=== PATIENT | male | born 1965 | race African-American/Black ===

== ENCOUNTER 2018-01-13 11:30 | Inpatient (IN) | payer OTHER ==
[2018-01-13 13:08] VITALS: BMI 38.2
--- NOTE | 2018-01-13 19:23 | HP ---
CIWA Score - CIWA Score Nausea/Vomitin Muscle Tremors: 3 Anxiety: 4-Mod. Anxious/Guarded Agitation: 4-Moderately Restless Paroxysmal Sweats: 2 Orientation: 0-Oriented Tacttile Disturbances: 0-None Auditory Disturbances: 0-None Visual Disturbances: 0-None Headache: 0-None Present CIWA-Ar Total Score: 16 Admission ROS BHS - HPI Chief Complaint: "I am here to get clean". requesting detox from alcohol and crack cocaine Allergies/Adverse Reactions: Allergies Allergy/AdvReac Type Severity Reaction Status Date / Time No Known Allergies Allergy Verified 01/13/18 16:50 History of Present Illness: 52 year old male with a very long hx of alcohol abuse presents for detox from alcohol. pt states he came voluntarily. Reports being clean for 90 days, states he relapsed using crack and alcohol till this morning. Pt has been here in the past. Hx- HTN (Diovan), Acid reflux (prevacid), Depression (trazadone). Reports feeling depressed but Denies SI. Exam Limitations: No Limitations - Ebola screening Have you traveled outside of the country in the last 21 days: No Have you had contact with anyone from an Ebola affected area: No Have you been sick,other than usual withdrawal symptoms: No Do you have a fever: No - Review of Systems Constitutional: Loss of Appetite, Changes in sleep EENT: reports: No Symptoms Reported Respiratory: reports: No Symptoms reported Cardiac: reports: No Symptoms Reported GI: reports: Diarrhea, Nausea : reports: No Symptoms Reported Musculoskeletal: reports: No Symptoms Reported Integumentary: reports: No Symptoms Reported Neuro: reports: No Symptoms reported Endocrine: reports: No Symptoms Reported Hematology: reports: No Symptoms Reported Psychiatric: reports: Orientated x3, Agitated, Anxious, Depressed (because 'i just messed up with drinking again") Other Systems: Reviewed and Negative Patient History - Patient Medical History Hx Anemia: No Hx Asthma: No Hx Chronic Obstructive Pulmonary Disease (COPD): No Hx Cancer: No Hx Cardiac Disorders: No Hx Congestive Heart Failure: No Hx Hypertension: Yes Hx Pacemaker: Yes (On diovan, reports being compliant) HX Cerebrovascular Accident: No Hx Seizures: No Hx Dementia: No Hx Diabetes: No Hx Gastrointestinal Disorders: No Hx Liver Disease: No Hx Genitourinary Disorders: No Hx Sexually Transmitted Disorders: No Hx Renal Disease (ESRD): No Hx Thyroid Disease: No Hx Human Immunodeficiency Virus (HIV): No (Negative 8 months ago) Hx Hepatitis C: No Hx Depression: Yes (On Trazadone) Hx Suicide Attempt: No Hx Bipolar Disorder: Yes (Bipolar I) Hx Schizophrenia: No - Patient Surgical History Past Surgical History: Yes Hx Orthopedic Surgery: Yes (R knee replacement 2009) Anesthesia Reaction: No - PPD History Previous Implant?: Yes Documented Results: Negative w/o proof Implanted On Prior [facility] Admission?: No PPD to be Administered?: Yes - Reproductive History Patient is a Female of Child Bearing Age (11 -55 yrs old): No - Smoking Cessation Smoking history: Current some day smoker Have you smoked in the past 12 months: Yes Aproximately how many cigarettes per day: 13 Hx Chewing Tobacco Use: No Initiated information on smoking cessation: Yes 'Breaking Loose' booklet given: 01/13/18 - Substance & Tx. History Hx Alcohol Use: Yes (Beer and liquor) Hx Substance Use: Yes Substance Use Type: Cocaine - Substances Abused Alcohol Route: Oral Frequency: Daily Amount used: -06/17OZ BEER, 1/4 pint of Betty Age of first use: 13 Date of Last Use: 01/13/18 Cocaine Route: Smoking Frequency: 1-3 times last 30 days Amount used: $700 Age of first use: 25 Date of Last Use: 01/12/18 Family Disease History - Family Disease History Family History: Unable to Obtain Admission Physical Exam BHS - Vital Signs Vital Signs: Vital Signs - 24 hr 01/13/18 13:06 Temperature 96.2 F L Pulse Rate 79 Respiratory 20 Rate Blood Pressure 122/73 - Physical General Appearance: Yes: Mild Distress, Irritable, Anxious HEENTM: Yes: Nasal Congestion Respiratory: Yes: Lungs Clear, No Respiratory Distress Neck: Yes: No masses,lesions,Nodules, Trachea in good position Breast: Yes: Breast Exam Deferred Cardiology: Yes: Regular Rhythm Abdominal: Yes: Non Tender, Distended Genitourinary: Yes: Within Normal Limits Back: Yes: Normal Inspection Musculoskeletal: Yes: full range of Motion, Gait Steady Extremities: Yes: Normal Capillary Refill, Normal Range of Motion Neurological: Yes: Fully Oriented, Alert, Motor Strength 5/5 Integumentary: Yes: Dry (Generalized dry scaly skin) Lymphatic: Yes: Within Normal Limits - Diagnostic (1) Alcohol dependence, uncomplicated Current Visit: Yes Status: Acute (2) Cocaine dependence Current Visit: Yes Status: Acute (3) Nicotine dependence Current Visit: Yes Status: Chronic (4) Dry skin Current Visit: Yes Status: Acute (5) HTN (hypertension) Current Visit: Yes Status: Chronic (6) Acid reflux Current Visit: Yes Status: Chronic (7) Depression Current Visit: Yes Status: Suspected Cleared for Admission BHS - Detox or Rehab Detox Regimen/Protocol: Librium BHS Breath Alcohol Content Breath Alcohol Content: 0.089 Urine Drug Screen - Results Drug Screen Negative: No Urine Drug Screen Results: DEMIAN-Cocaine
[2018-01-13] MEDS ORDERED: ACETAMINOPHEN 325 MG TABLET (FP) PO PRN (19:44)
[2018-01-13] MEDS ORDERED: chlordiazePOXIDE HCL 25 MG CAPSULE PO PRN (19:44)
[2018-01-13] MEDS ORDERED: MAG HYDROX/AL HYDROX/SIMETH 30 ML UNIT-DOSE CUP PO PRN (19:44)
[2018-01-13] MEDS ORDERED: IBUPROFEN 400 MG TABLET (FP) PO PRN (19:44)
[2018-01-13] MEDS ORDERED: NICOTINE POLACRILEX 2 MG GUM BUC PRN (19:44)
[2018-01-13] MEDS ORDERED: LOPERAMIDE HCL 2 MG CAPSULE PO PRN (19:44)
[2018-01-13] MEDS ORDERED: hydrOXYzine PAMOATE 50 MG CAPSULE (FP) PO PRN (19:44)
[2018-01-13] MEDS ORDERED: MENTHOL/PHENOL 1 EACH UD MM PRN (19:44)
[2018-01-13] MEDS ORDERED: P-EPHED 60MG/TRIPROLIDI 2.5MG TABLET PO PRN (19:44)
[2018-01-13] MEDS ORDERED: guaiFENesin/D-METHORPHAN HB 10 ML UNIT-DOSE CUPS PO PRN (19:44)
[2018-01-13] MEDS ORDERED: MAGNESIUM HYDROX 2400MG/30ML ORAL SUSPENSION 30 ML CUP PO PRN (19:44)
[2018-01-13] MEDS ORDERED: MAGNESIUM CITRATE 300 ML BOTTLE PO PRN (19:44)
[2018-01-13] MEDS: NICOTINE 21 MG/24 HOURS TOPICAL PATCH TD SCH (21:28)
[2018-01-13] MEDS: PANTOPRAZOLE 20 MG TABLET (FP) PO SCH (21:29)
[2018-01-13] MEDS: THIAMINE HCL 100 MG TABLET (FP) PO SCH (21:29)
[2018-01-13] MEDS ORDERED: MELATONIN 5 MG TABLETS PO PRN (22:00)
[2018-01-13] MEDS: chlordiazePOXIDE HCL 25 MG CAPSULE PO SCH (22:32)
[2018-01-13 22:56] LABS: URINE APPEARANCE CLEAR; URINE BILIRUBIN NEGATIVE (<2.0 mg/dL); URINE COLOR STRAW; URINE GLUCOSE (UA) NEGATIVE (NEGATIVE); URINE KETONE NEGATIVE (NEGATIVE); URINE LEUK ESTERASE NEGATIVE (NEGATIVE); URINE NITRITE NEGATIVE (NEGATIVE); URINE PROTEIN NEGATIVE (NEGATIVE); URINE UROBILINOGEN NEGATIVE mg/dL (0.2-1.0)
[2018-01-14] MEDS: chlordiazePOXIDE HCL 25 MG CAPSULE PO SCH ×4 (05:53→22:10)
--- NOTE | 2018-01-14 10:23 | PN ---
S CIWA - CIWA Score Nausea/Vomitin Muscle Tremors: 3 Anxiety: 3 Agitation: 2 Paroxysmal Sweats: 3 Orientation: 0-Oriented Tacttile Disturbances: 0-None Auditory Disturbances: 0-None Visual Disturbances: 0-None Headache: 0-None Present CIWA-Ar Total Score: 14 BHS Progress Note (SOAP) Subjective: Sweats Shakes Sleep disturbance Objective: 01/14/18 10:29 A & O x 3 In bed, sleepy but arousable Vital Signs Temperature 97.1 F L 01/14/18 09:09 Pulse Rate 74 01/14/18 09:09 Respiratory Rate 18 01/14/18 09:09 Blood Pressure 123/85 01/14/18 09:09 O2 Sat by Pulse Oximetry (%) Laboratory Last Values Urine Color Straw 01/13/18 20:00 Urine Appearance Clear 01/13/18 20:00 Urine pH 7.0 (5.0-8.0) 01/13/18 20:00 Ur Specific [place] 1.004 (1.001-1.035) 01/13/18 20:00 Urine Protein Negative (NEGATIVE) 01/13/18 20:00 Urine Glucose (UA) Negative (NEGATIVE) 01/13/18 20:00 Urine Ketones Negative (NEGATIVE) 01/13/18 20:00 Urine Blood Negative (NEGATIVE) 01/13/18 20:00 Urine Nitrite Negative (NEGATIVE) 01/13/18 20:00 Urine Bilirubin Negative (<2.0 mg/dL) 01/13/18 20:00 Urine Urobilinogen Negative mg/dL (0.2-1.0) 01/13/18 20:00 Ur Leukocyte Esterase Negative (NEGATIVE) 01/13/18 20:00 pending labs Assessment: 01/14/18 10:30 withdrawal sx Plan: continue detox Increase hydration
[2018-01-14] MEDS: PRENATAL VITAMINS W/ FOLIC ACID TABLET (FP) PO SCH (10:25)
[2018-01-14] MEDS: NICOTINE 21 MG/24 HOURS TOPICAL PATCH TD SCH (10:25)
[2018-01-14] MEDS: PANTOPRAZOLE 20 MG TABLET (FP) PO SCH (10:25)
[2018-01-14 10:44] LABS: HEMATOCRIT 40.5 % (35.4-49); HEMOGLOBIN 12.9 GM/dL (11.7-16.9); MCH 23.7 pg (25.7-33.7); MCHC 31.9 g/dl (32.0-35.9); MEAN CELL VOLUME 74.2 fl (80-96); MEAN PLT VOLUME 9.1 fl (7.5-11.1); PLATELET COUNT 215 K/MM3 (134-434); RBC 5.46 M/mm3 (4.00-5.60); WHITE BLOOD COUNT 11.9 K/mm3 (4.0-10.0)
[2018-01-14 10:49] LABS: ALBUMIN 3.3 g/dl (3.4-5.0); ANION GAP 8 (8-16); BLOOD UREA NITROGEN 17 mg/dL (7-18); CALCIUM 8.3 mg/dL (8.5-10.1); CHLORIDE 101 mmol/L (98-107); CO2 30 mmol/L (21-32); GLUCOSE,RANDOM 138 mg/dL (74-106); POTASSIUM 3.4 mmol/L (3.5-5.1); SGOT/AST 35 U/L (15-37); SODIUM 139 mmol/L (136-145)
[2018-01-14 10:51] LABS: ALK PHOS 76 U/L (45-117); BILIRUBIN,TOTAL 0.4 mg/dL (0.2-1.0); CREATININE 1.2 mg/dL (0.7-1.3); SGPT/ALT 40 U/L (12-78); TOT PROT 6.5 g/dl (6.4-8.2)
--- NOTE | 2018-01-14 11:09 | EKG ---
Test Reason : Blood Pressure : / mmHG Vent. Rate : 075 BPM Atrial Rate : 075 BPM P-R Int : 168 ms QRS Dur : 080 ms QT Int : 424 ms P-R-T Axes : 040 052 047 degrees QTc Int : 473 ms NORMAL SINUS RHYTHM NORMAL ECG NO PREVIOUS ECGS AVAILABLE Confirmed by DRU RIVERA MD ([id number]) on 01/14/2018 11:09:26 AM Referred By: Clyde Arreola Confirmed By:DRU RIVERA MD
[2018-01-14] MEDS: VALSARTAN 80 MG TABLET (UD) PO SCH (11:30)
--- NOTE | 2018-01-14 12:48 | CONSULT ---
[facility] Psychiatric Consult - Data Date of interview: 01/14/18 Admission source: [facility] Identifying data: First admission to [facility] for this 52 y/o AA male seeking detox treatment on for alcohol and cocaine (crack) dependence.Patient is single,a father of one,domiciled,unemployed and supported on [facility] benefits. Substance Abuse History: Confirmed by patient in this interview.Details in current [facility] report : Smoking history: Current some day smoker. Have you smoked in the past 12 months: Yes. Aproximately how many cigarettes per day: 13. Hx Chewing Tobacco Use: No. Initiated information on smoking cessation: Yes. ' Breaking Loose' booklet given: 01/13/18. - Substance & Tx. History. Hx Alcohol Use: Yes (Beer and liquor). Hx Substance Use: Yes. Substance Use Type : Cocaine. - Substances Abused. Alcohol. Route: Oral. Frequency: Daily. Amount used: 8-06/17OZ BEER, 1/4 pint of Betty. Age of first use: 13. Date of Last Use: 01/13/18. Cocaine. Route: Smoking. Frequency: 1-3 times last 30 days. Amount used: $700. Age of first use: 25. Date of Last Use: 01/12/18 Medical History: Hypertension,GERD,cardiopathy (pacemaker in place) and a distant history of orthosurgery (right knee replacement). Psychiatric History: Patient admits to a history of three psychiatric hopitalizations ([facility]).Reportedly diagnosed with Bipolar Disorder.Mr Ramirez states that he gets his outpatient psychiatric services at the [facility] in [place], [place].Prescribed trazodone 150 mg/hs." They prescribe me other things but I don't take them." Review of pharmacy claims yields the evidence of refills for fluoxetine and aripriprazole (2017) + lamotrigine 100 mg/day on 12/25/17 at [facility] # [id number].No psychiatric rehospitalizations for more than 10 years as per self-report.Patient denies history of suicide attempts. Physical/Sexual Abuse/Trauma History: Patient denies. Additional Comment: Urine Drug Screen Results: DEMIAN-Cocaine.Noted. Mental Status Exam - Mental Status Exam Alert and Oriented to: Time, Place, Person Cognitive Function: Good Patient Appearance: Disheveled Mood: Withdrawn Affect: Appropriate, Normal Range Patient Behavior: Fatigued, Appropriate, Cooperative Speech Pattern: Clear, Appropriate Voice Loudness: Normal Thought Process: Goal Oriented Thought Disorder: Not Present Hallucinations: Denies Suicidal Ideation: Denies Homicidal Ideation: Denies Insight/Judgement: Poor Sleep: Poorly, Difficulty falling asleep Appetite: Good Muscle strength/Tone: Normal Gait/Station: Normal Psychiatric Findings - Problem List ([place] 1, 2,3) (1) Alcohol dependence, uncomplicated Current Visit: Yes Status: Acute (2) Cocaine dependence Current Visit: Yes Status: Acute (3) Nicotine dependence Current Visit: Yes Status: Acute (4) Substance induced mood disorder Current Visit: Yes Status: Acute (5) Bipolar disorder Current Visit: Yes Status: Chronic Comment: As per self-report.Prescribed lamotrigine.Non-adherence to medication. (6) Insomnia Current Visit: Yes Status: Acute - Initial Treatment Plan Initial Treatment Plan: Psychoeducation.Sleep hygiene.Detoxification in progress.Patient is advised to take his medications as prescribed by Dr Raiza Navas, his [facility] care psychiatrist.Mr Ramirez declares that he will take only trazodone and " nothing else." Made aware of risks taken by disregarding his doctor's orders.Informed of potential for priapism.Patient reports trazodone as well tolerated and effective.Trazodone 100 mg po hs.Ordered.Patient gildardoy consented to this careplan.Observation.
[2018-01-14] MEDS: THIAMINE HCL 100 MG TABLET (FP) PO SCH (22:09)
[2018-01-14] MEDS: traZODone HCL 100 MG TABLET (FP) PO SCH (22:09)
[2018-01-15] MEDS: chlordiazePOXIDE HCL 25 MG CAPSULE PO SCH ×3 (06:07→18:45)
[2018-01-15] MEDS: NICOTINE 21 MG/24 HOURS TOPICAL PATCH TD SCH (10:13)
[2018-01-15] MEDS: VALSARTAN 80 MG TABLET (UD) PO SCH (10:13)
[2018-01-15] MEDS: PANTOPRAZOLE 20 MG TABLET (FP) PO SCH (10:13)
[2018-01-15] MEDS: PRENATAL VITAMINS W/ FOLIC ACID TABLET (FP) PO SCH (10:13)
[2018-01-15] MEDS ORDERED: POTASSIUM CHLORIDE TABS 20 MEQ TABLET.ER (FP) PO ONE (11:40)
--- NOTE | 2018-01-15 11:40 | PN ---
[facility] CIWA - CIWA Score Nausea/Vomitin-No Nausea/No Vomiting Muscle Tremors: None Anxiety: 3 Agitation: 3 Paroxysmal Sweats: 3 Orientation: 0-Oriented Tacttile Disturbances: 3-Moderate Itch/Numb/Burn Auditory Disturbances: 0-None Visual Disturbances: 2-Mild Sensitivity Headache: 0-None Present CIWA-Ar Total Score: 14 S Progress Note (SOAP) Subjective: Fatigue, Sweating, Anxious, Body Aches. Objective: PATIENT A & O X 3. NO ACUTE DISTRESS. 01/15/18 11:38 Vital Signs Temperature 98.4 F 01/15/18 09:03 Pulse Rate 100 H 01/15/18 09:03 Respiratory Rate 16 01/15/18 09:03 Blood Pressure 140/87 01/15/18 09:03 O2 Sat by Pulse Oximetry (%) Laboratory Tests 01/13/18 01/14/18 01/14/18 20:00 07:00 07:00 WBC 11.9 H RBC 5.46 Hgb 12.9 Hct 40.5 MCV 74.2 L MCH 23.7 L MCHC 31.9 L RDW 16.0 H Plt Count 215 MPV 9.1 Sodium 139 Potassium 3.4 L Chloride 101 Carbon Dioxide 30 Anion Gap 8 BUN 17 Creatinine 1.2 Creat Clearance w eGFR > 60 Random Glucose 138 H Calcium 8.3 L Total Bilirubin 0.4 AST 35 ALT 40 Alkaline Phosphatase 76 Total Protein 6.5 Albumin 3.3 L Urine Color Straw Urine Appearance Clear Urine pH 7.0 Ur Specific [place] 1.004 Urine Protein Negative Urine Glucose (UA) Negative Urine Ketones Negative Urine Blood Negative Urine Nitrite Negative Urine Bilirubin Negative Urine Urobilinogen Negative Ur Leukocyte Esterase Negative RPR Titer 01/14/18 07:00 WBC RBC Hgb Hct MCV MCH MCHC RDW Plt Count MPV Sodium Potassium Chloride Carbon Dioxide Anion Gap BUN Creatinine Creat Clearance w eGFR Random Glucose Calcium Total Bilirubin AST ALT Alkaline Phosphatase Total Protein Albumin Urine Color Urine Appearance Urine pH Ur Specific [place] Urine Protein Urine Glucose (UA) Urine Ketones Urine Blood Urine Nitrite Urine Bilirubin Urine Urobilinogen Ur Leukocyte Esterase RPR Titer Nonreactive LABS NOTED. Assessment: 01/15/18 11:38 WITHDRAWAL SYMPTOMS. HYPOKALEMIA. 01/15/18 11:41 Plan: WITHDRAWAL SYMPTOMS. K-DUR, 20 MEQ PO BID. BGM ACBK FOR ELEVATED ADMISSION RANDOM GLUCOSE LEVEL. INCREASE DAILY PO FLUID INTAKE.
[2018-01-15] MEDS: POTASSIUM CHLORIDE TABS 20 MEQ TABLET.ER (FP) PO SCH (18:45)
[2018-01-15] MEDS: THIAMINE HCL 100 MG TABLET (FP) PO SCH (23:26)
[2018-01-15] MEDS: chlordiazePOXIDE 5 MG CAPSULE PO SCH (23:26)
[2018-01-15] MEDS: traZODone HCL 100 MG TABLET (FP) PO SCH (23:26)
[2018-01-16] MEDS: chlordiazePOXIDE 5 MG CAPSULE PO SCH ×3 (05:29→17:39)
[2018-01-16] MEDS: NICOTINE 21 MG/24 HOURS TOPICAL PATCH TD SCH (10:19)
[2018-01-16] MEDS: PRENATAL VITAMINS W/ FOLIC ACID TABLET (FP) PO SCH (10:19)
[2018-01-16] MEDS: PANTOPRAZOLE 20 MG TABLET (FP) PO SCH (10:19)
[2018-01-16] MEDS: VALSARTAN 80 MG TABLET (UD) PO SCH (10:19)
[2018-01-16] MEDS: POTASSIUM CHLORIDE TABS 20 MEQ TABLET.ER (FP) PO SCH ×2 (10:20→17:39)
--- NOTE | 2018-01-16 12:41 | PN ---
BHS Progress Note (SOAP) Subjective: ANXIETY,SWEATS,BOY ACHES,FATIGUE. Objective: 01/16/18 12:40 Vital Signs Temperature 97.4 F L 01/16/18 09:46 Pulse Rate 89 01/16/18 09:46 Respiratory Rate 18 01/16/18 09:46 Blood Pressure 145/84 01/16/18 09:46 O2 Sat by Pulse Oximetry (%) Laboratory Last Values WBC 11.9 K/mm3 (4.0-10.0) H 01/14/18 07:00 RBC 5.46 M/mm3 (4.00-5.60) 01/14/18 07:00 Hgb 12.9 GM/dL (11.7-16.9) 01/14/18 07:00 Hct 40.5 % (35.4-49) 01/14/18 07:00 MCV 74.2 fl (80-96) L 01/14/18 07:00 MCH 23.7 pg (25.7-33.7) L 01/14/18 07:00 MCHC 31.9 g/dl (32.0-35.9) L 01/14/18 07:00 RDW 16.0 % (11.9-15.9) H 01/14/18 07:00 Plt Count 215 K/MM3 (134-434) 01/14/18 07:00 MPV 9.1 fl (7.5-11.1) 01/14/18 07:00 Sodium 139 mmol/L (136-145) 01/14/18 07:00 Potassium 3.4 mmol/L (3.5-5.1) L 01/14/18 07:00 Chloride 101 mmol/L (98-107) 01/14/18 07:00 Carbon Dioxide 30 mmol/L (21-32) 01/14/18 07:00 Anion Gap 8 (8-16) 01/14/18 07:00 BUN 17 mg/dL (7-18) 01/14/18 07:00 Creatinine 1.2 mg/dL (0.7-1.3) 01/14/18 07:00 Creat Clearance w eGFR > 60 (>60) 01/14/18 07:00 POC Glucometer 126 UNITS (80-120) 01/16/18 05:29 Random Glucose 138 mg/dL (74-106) H 01/14/18 07:00 Calcium 8.3 mg/dL (8.5-10.1) L 01/14/18 07:00 Total Bilirubin 0.4 mg/dL (0.2-1.0) 01/14/18 07:00 AST 35 U/L (15-37) 01/14/18 07:00 ALT 40 U/L (12-78) 01/14/18 07:00 Alkaline Phosphatase 76 U/L (45-117) 01/14/18 07:00 Total Protein 6.5 g/dl (6.4-8.2) 01/14/18 07:00 Albumin 3.3 g/dl (3.4-5.0) L 01/14/18 07:00 Urine Color Straw 01/13/18 20:00 Urine Appearance Clear 01/13/18 20:00 Urine pH 7.0 (5.0-8.0) 01/13/18 20:00 Ur Specific [place] 1.004 (1.001-1.035) 01/13/18 20:00 Urine Protein Negative (NEGATIVE) 01/13/18 20:00 Urine Glucose (UA) Negative (NEGATIVE) 01/13/18 20:00 Urine Ketones Negative (NEGATIVE) 01/13/18 20:00 Urine Blood Negative (NEGATIVE) 01/13/18 20:00 Urine Nitrite Negative (NEGATIVE) 01/13/18 20:00 Urine Bilirubin Negative (<2.0 mg/dL) 01/13/18 20:00 Urine Urobilinogen Negative mg/dL (0.2-1.0) 01/13/18 20:00 Ur Leukocyte Esterase Negative (NEGATIVE) 01/13/18 20:00 RPR Titer Nonreactive (NONREACTIVE) 01/14/18 07:00 Assessment: 01/16/18 12:40 WITHDRAWAL SX Plan: CONTINUE DETOX
[2018-01-16] MEDS: traZODone HCL 100 MG TABLET (FP) PO SCH (22:48)
[2018-01-16] MEDS: THIAMINE HCL 100 MG TABLET (FP) PO SCH (22:49)
[2018-01-16] MEDS: chlordiazePOXIDE HCL 10 MG CAPSULE PO SCH (22:49)
[2018-01-17] MEDS: chlordiazePOXIDE HCL 10 MG CAPSULE PO SCH (06:00)
[2018-01-17 09:01] VITALS: BP 120/81; PULSE 71; TEMP 98.1
--- NOTE | 2018-01-17 15:09 | DS ---
[facility] Detox Discharge Summary Admission Date: 01/13/18 Discharge Date: 01/17/18 - History Present History: Alcohol Dependence, Cocaine Dependence Additional Comments: DETOX COMPLETED. ALERT O X 3. NAD. REPORTS PRIMARY CARE AT [address] [place] [address]. Pertinent Past History: PLEASE SEE DX BELOW - Physical Exam Results Vital Signs: Vital Signs Temperature 98.1 F 01/17/18 09:00 Pulse Rate 71 01/17/18 09:00 Respiratory Rate 18 01/17/18 09:00 Blood Pressure 120/81 01/17/18 09:00 O2 Sat by Pulse Oximetry (%) Pertinent Admission Physical Exam Findings: WITHDRAWAL SX Laboratory Tests 01/13/18 01/14/18 01/14/18 20:00 07:00 07:00 WBC 11.9 H RBC 5.46 Hgb 12.9 Hct 40.5 MCV 74.2 L MCH 23.7 L MCHC 31.9 L RDW 16.0 H Plt Count 215 MPV 9.1 Sodium 139 Potassium 3.4 L Chloride 101 Carbon Dioxide 30 Anion Gap 8 BUN 17 Creatinine 1.2 Creat Clearance w eGFR > 60 POC Glucometer Random Glucose 138 H Calcium 8.3 L Total Bilirubin 0.4 AST 35 ALT 40 Alkaline Phosphatase 76 Total Protein 6.5 Albumin 3.3 L Urine Color Straw Urine Appearance Clear Urine pH 7.0 Ur Specific [place] 1.004 Urine Protein Negative Urine Glucose (UA) Negative Urine Ketones Negative Urine Blood Negative Urine Nitrite Negative Urine Bilirubin Negative Urine Urobilinogen Negative Ur Leukocyte Esterase Negative RPR Titer 01/14/18 01/16/18 01/17/18 07:00 05:29 05:52 WBC RBC Hgb Hct MCV MCH MCHC RDW Plt Count MPV Sodium Potassium Chloride Carbon Dioxide Anion Gap BUN Creatinine Creat Clearance w eGFR POC Glucometer 126 122 Random Glucose Calcium Total Bilirubin AST ALT Alkaline Phosphatase Total Protein Albumin Urine Color Urine Appearance Urine pH Ur Specific [place] Urine Protein Urine Glucose (UA) Urine Ketones Urine Blood Urine Nitrite Urine Bilirubin Urine Urobilinogen Ur Leukocyte Esterase RPR Titer Nonreactive - Treatment Hospital Course: Detox Protocol Followed, Detoxed Safely, Responded well, Discharged Condition Good, Rehab Referral Accepted Patient has Accepted a Rehab Referral to: [facility] - Medication Discharge Medications: Ambulatory Orders Lansoprazole [Prevacid] 30 mg PO DAILY 01/13/18 Trazodone HCl 150 mg PO HS 01/13/18 Valsartan [Diovan] 80 mg PO DAILY 01/13/18 - Diagnosis (1) Alcohol dependence, uncomplicated Status: Acute (2) Dry skin Status: Acute (3) Nicotine dependence Status: Acute Qualifiers: Nicotine product type: cigarettes Substance use status: in withdrawal Qualified Code(s): F17.213 - Nicotine dependence, cigarettes, with withdrawal (4) Acid reflux Status: Chronic Qualifiers: Esophagitis presence: esophagitis presence not specified Qualified Code(s) : K21.9 - Gastro-esophageal reflux disease without esophagitis (5) HTN (hypertension) Status: Chronic Qualifiers: Hypertension type: essential hypertension Qualified Code(s): I10 - Essential (primary) hypertension (6) Cocaine dependence Status: Acute Qualifiers: Substance use status: uncomplicated Qualified Code(s): F14.20 - Cocaine dependence, uncomplicated (7) Hypokalemia Status: Acute - AMA Did Patient Leave Against Medical Advice: No
--- NOTE | 2018-01-17 15:11 | PN ---
BHS Progress Note (SOAP) Subjective: DETOX COMPLETED. ALERT O X 3. Objective: 01/17/18 15:10 Laboratory Last Values WBC 11.9 K/mm3 (4.0-10.0) H 01/14/18 07:00 RBC 5.46 M/mm3 (4.00-5.60) 01/14/18 07:00 Hgb 12.9 GM/dL (11.7-16.9) 01/14/18 07:00 Hct 40.5 % (35.4-49) 01/14/18 07:00 MCV 74.2 fl (80-96) L 01/14/18 07:00 MCH 23.7 pg (25.7-33.7) L 01/14/18 07:00 MCHC 31.9 g/dl (32.0-35.9) L 01/14/18 07:00 RDW 16.0 % (11.9-15.9) H 01/14/18 07:00 Plt Count 215 K/MM3 (134-434) 01/14/18 07:00 MPV 9.1 fl (7.5-11.1) 01/14/18 07:00 Sodium 139 mmol/L (136-145) 01/14/18 07:00 Potassium 3.4 mmol/L (3.5-5.1) L 01/14/18 07:00 Chloride 101 mmol/L (98-107) 01/14/18 07:00 Carbon Dioxide 30 mmol/L (21-32) 01/14/18 07:00 Anion Gap 8 (8-16) 01/14/18 07:00 BUN 17 mg/dL (7-18) 01/14/18 07:00 Creatinine 1.2 mg/dL (0.7-1.3) 01/14/18 07:00 Creat Clearance w eGFR > 60 (>60) 01/14/18 07:00 POC Glucometer 122 UNITS (80-120) 01/17/18 05:52 Random Glucose 138 mg/dL (74-106) H 01/14/18 07:00 Calcium 8.3 mg/dL (8.5-10.1) L 01/14/18 07:00 Total Bilirubin 0.4 mg/dL (0.2-1.0) 01/14/18 07:00 AST 35 U/L (15-37) 01/14/18 07:00 ALT 40 U/L (12-78) 01/14/18 07:00 Alkaline Phosphatase 76 U/L (45-117) 01/14/18 07:00 Total Protein 6.5 g/dl (6.4-8.2) 01/14/18 07:00 Albumin 3.3 g/dl (3.4-5.0) L 01/14/18 07:00 Urine Color Straw 01/13/18 20:00 Urine Appearance Clear 01/13/18 20:00 Urine pH 7.0 (5.0-8.0) 01/13/18 20:00 Ur Specific [place] 1.004 (1.001-1.035) 01/13/18 20:00 Urine Protein Negative (NEGATIVE) 01/13/18 20:00 Urine Glucose (UA) Negative (NEGATIVE) 01/13/18 20:00 Urine Ketones Negative (NEGATIVE) 01/13/18 20:00 Urine Blood Negative (NEGATIVE) 01/13/18 20:00 Urine Nitrite Negative (NEGATIVE) 01/13/18 20:00 Urine Bilirubin Negative (<2.0 mg/dL) 01/13/18 20:00 Urine Urobilinogen Negative mg/dL (0.2-1.0) 01/13/18 20:00 Ur Leukocyte Esterase Negative (NEGATIVE) 01/13/18 20:00 RPR Titer Nonreactive (NONREACTIVE) 01/14/18 07:00 Vital Signs Temperature 98.1 F 01/17/18 09:00 Pulse Rate 71 01/17/18 09:00 Respiratory Rate 18 01/17/18 09:00 Blood Pressure 120/81 01/17/18 09:00 O2 Sat by Pulse Oximetry (%) Assessment: 01/17/18 15:10 MEDICALLY STABLE Plan: D/C PT TODAY
== END 2018-01-17 10:19 | disposition home or self-care (01) | DRG 897 ==
LOC: YASAS 11:30 → Y3N 17:13
PROVIDERS: ADMIT Internal Medicine; ATTEND Internal Medicine
PROC: HZ2ZZZZ Detoxification Services for Substance Abuse Treatment (ICD-10-PCS; principal; 2018-01-13)
DX: F10.230 Alcohol dependence with withdrawal, uncomplicated (principal); F14.20 Cocaine dependence, uncomplicated; F31.89 Other bipolar disorder; F19.24 Other psychoactive substance dependence with psychoactive substance-induced mood disorder; G47.00 Insomnia, unspecified; I10 Essential (primary) hypertension; E87.6 Hypokalemia; L85.3 Xerosis cutis; K21.9 Gastro-esophageal reflux disease without esophagitis
CPT/HCPCS: 36415; 80053; 81003; 82962; 85027; 86593; 93005; 93010

== ENCOUNTER 2019-08-07 14:17 | Emergency (ER) | payer BC, OTHER ==
[2019-08-07 14:32] VITALS: BP 127/81; PULSE 78; TEMP 98.1; BMI 39.6
--- NOTE | 2019-08-07 14:34 | PDOC ---
History of Present Illness - General Chief Complaint: Lightheaded Stated Complaint: WANTS TO BE CHECKED OUT Time Seen by Provider: 08/07/19 14:25 History Source: Patient Exam Limitations: No Limitations - History of Present Illness Initial Comments: 08/07/19 14:29 54y M no known pmhx presenst with complaint of not feelnig well and feeling alittle lightheaded. Pt states he was doing well yesterday, was at a friends house drinking cran bearden juice (no etoh), and started not feeling well. States he didnt feel himself, and felt alitlte lightheaded. pt mark any explicit pain including headache, cp, abd pain, back pain, urinary frqeuncy, diarrheam melena , bpr, fever/chills, cough, sob, royal. pt was a former alcoholic Past History - Past Medical History Allergies/Adverse Reactions: Allergies Allergy/AdvReac Type Severity Reaction Status Date / Time No Known Allergies Allergy Verified 08/07/19 14:19 Home Medications: Ambulatory Orders Lansoprazole [Prevacid] 30 mg PO DAILY 01/13/18 Valsartan [Diovan] 80 mg PO DAILY 01/13/18 Metformin HCl [Glucophage] 500 mg PO BID 08/07/19 Anemia: No Asthma: No Cancer: No Cardiac Disorders: No CVA: No COPD: No CHF: No Dementia: No Diabetes: No GI Disorders: No Disorders: No HTN: Yes Liver Disease: No Seizures: No Thyroid Disease: No - Surgical History Orthopedic Surgery: Yes (R knee replacement 2009) - Psycho Social/Smoking Cessation Hx Smoking History: Current some day smoker Have you smoked in the past 12 months: Yes Number of Cigarettes Smoked Daily: 13 'Breaking Loose' booklet given: 01/13/18 Hx Alcohol Use: Yes (Beer and liquor) Drug/Substance Use Hx: Yes Substance Use Type: Cocaine Review of Systems - Review of Systems Able to Perform ROS?: Yes Comments:: 08/07/19 14:31 Constitutional - no reported Fever, Chills, HEENT: no reported vision changes, sore throat Respiratory: no reported cough, sob, hemoptysis Cardiac: + lightheadedness, no reported chest pain, palpitations, leg swelling Abd/GI: no reported abd pain, nausea, vomiting, blood per rectum, melena, diarrhea : no reported dysuria, frequency, discharge Musculskelatal - no reported back pain, joint swelling skin - no reported bruising, erythema, rash neurological: no reported headache, numbness, focal weakness, tingling, ataxia, hematologic: no reported easy bruising, easy bleeding *Physical Exam - Physical Exam Comments: 08/07/19 14:33 GENERAL: The patient is awake, alert, and fully oriented, Nontoxic - in no acute distress. HEAD: Normocephalic, atraumatic. EYES: extraocular movements intact, sclera anicteric, conjunctiva clear. ENT: Normal voice, Moist mucous membranes. NECK: Normal range of motion, supple LUNGS: Breath sounds equal, clear to auscultation bilaterally. No wheezes, no rhonchi, no rales. HEART: Regular rate and rhythm, normal S1 and S2 without murmur, rub or gallop. ABDOMEN: Soft, nontender, No guarding, no rebound. No CVA tenderness EXTREMITIES: Normal range of motion, no edema. NEUROLOGICAL: No facial assymetry, Normal speech, Moving all 4 extremities spontaneously symmetrically, normal gait, normal sensation throughout PSYCH: Normal mood, normal affect. SKIN: Warm, Dry, normal turgor, Heart Score/ECG Review - ECG Impressions Comment:: 08/07/19 16:00 Twelve-lead EKG was performed and reviewed by me. There is normal sinus rhythm with a normal rate. Rate of 75 The axis is normal. The intervals are normal. There is normal R wave progression ED Treatment Course - LABORATORY CBC & Chemistry Diagram: 08/07/19 14:50 08/07/19 14:52 Medical Decision Making - Medical Decision Making 08/07/19 14:33 Will screen for anemia, metabolic derangement, arrhythmia, Occult UTI 08/07/19 15:59 Patient's blood work is reviewed noted for leukocytosis of 17 without a left shift the rest of his labs are unremarkable, U tox pending Patient feeling improved will discharge patient follow-up with his primary care doctor, return precautions were discussed I discussed the physical exam findings, ancillary test results and final diagnoses with the patient. I answered all of the patient's questions. The patient was satisfied with the care received and felt comfortable with the discharge plan and treatment plan. The patient will call their primary care physician within 24 hours to arrange follow-up and will return to the Emergency Department with any new, persistent or worsening symptoms. Discharge - Discharge Information Problems reviewed: Yes Clinical Impression/Diagnosis: Lightheaded Condition: Improved Disposition: HOME - Admission No - Follow up/Referral Referrals: [facility] [place] [facility] [place] [Provider Group] - Patient Discharge Instructions Patient Printed Discharge Instructions: DI for Muscle Weakness Additional Instructions: Return to the emergency department immediately with ANY new, persistent or worsening symptoms Including any associated pain, numbness, tingling, weakness, blurry vision, fevers, chills or any other concerns. You MUST call and follow up with your doctor in 3-4 days for further evaluation of your symptoms. Results were discussed with you. Please make sure your doctor reviews the results of your emergency evaluation. Your Emergency Department visit is not complete without a follow up with your doctor. Print Language: YI - Post Discharge Activity
[2019-08-07 15:06] LABS: RDW 15.9 % (11.9-15.9)
[2019-08-07 15:11] LABS: BASO % 0.6 % (0-2.0); EOS % 1.4 % (0-4.5); HEMATOCRIT 43.4 % (35.4-49); HEMOGLOBIN 13.9 GM/dl (11.7-16.9); LYMPH % 18.3 % (8-40); MCH 24.8 pg (25.7-33.7); MEAN CELL VOLUME 77.5 fl (80-96); MEAN PLT VOLUME 8.6 fl (7.5-11.1); MONO % 4.2 % (3.8-10.2); NEUT % 75.5 % (42.8-82.8); PLATELET COUNT 324 K/MM3 (134-434); WHITE BLOOD COUNT 17.9 K/mm3 (4.0-10.8)
[2019-08-07 15:23] LABS: ALBUMIN 3.9 g/dl (3.4-5.0); BILIRUBIN,TOTAL 0.2 mg/dl (0.2-1); CALCIUM 8.9 mg/dl (8.5-10); CREATININE 0.9 mg/dl (0.55-1.3); POTASSIUM 4.1 mmol/L (3.5-5.1); TOT PROT 6.9 g/dl (6.4-8.2)
[2019-08-07 16:08] LABS: COCAINE, UR NEGATIVE ng/ml (CUTOFF=300); METHADONE, UR NEGATIVE ng/ml (CUTOFF=300); OPIATES, URI NEGATIVE ng/ml (CUTOFF=300); PHENCYCLIDINE,URINE NEGATIVE ng/ml (CUTOFF=25); URINE AMPHETAMINES NEGATIVE ng/ml (CUTOFF=500); URINE BARBITURATES NEGATIVE ng/ml (CUTOFF=200); URINE BENZODIAZEPINES NEGATIVE ng/ml (CUTOFF=200)
--- NOTE | 2019-08-08 13:18 | EKG ---
Test Reason : Blood Pressure : / mmHG Vent. Rate : 075 BPM Atrial Rate : 075 BPM P-R Int : 158 ms QRS Dur : 086 ms QT Int : 400 ms P-R-T Axes : 038 065 046 degrees QTc Int : 446 ms NORMAL SINUS RHYTHM POSSIBLE LEFT ATRIAL ENLARGEMENT NONSPECIFIC T WAVE ABNORMALITY INCOMPLETE RBBB WHEN COMPARED WITH ECG OF 13-JAN-2018 20:37, NO SIGNIFICANT CHANGE WAS FOUND Confirmed by SHAWN MCKEON MD ([id number]) on 08/08/2019 1:18:14 PM Referred By: MAYO BARBER Confirmed By:SHAWN MCKEON MD
== END 2019-08-07 16:18 | disposition home or self-care (01) ==
LOC: FER 14:17
DX: R42 Dizziness and giddiness (principal); I10 Essential (primary) hypertension
CPT/HCPCS: 36415; 80053; 80307; 81003; 84484; 85025; 93005; 99282-25